=== PATIENT | male | born 1960 | race Caucasian/White ===

== ENCOUNTER → 2020-11-25 | Outpatient (CLI) | payer MEDICARE, OTHER ==
[2020-11-25 17:36] LABS: CHLORIDE 103 MMOL/L (98-107); POTASSIUM 3.4 MMOL/L (3.6-5.0); SODIUM 138 MMOL/L (135-145)
[2020-11-25 17:38] LABS: CALCIUM 9.5 MG/DL (8.5-10.1); GLUCOSE 115 MG/DL (70-105)
[2020-11-25 17:39] LABS: CARBON DIOXIDE 22 MMOL/L (21-32)
[2020-11-25 17:42] LABS: GFR ESTIMATED > 60
[2020-11-25 17:43] LABS: BUN/CREATININE RATIO 19
== END ==
LOC: LAB 17:05
DX: I10 Essential (primary) hypertension (principal)
CPT/HCPCS: 36415; 80048